=== PATIENT | female | born 2000 | race Caucasian/White ===

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

== ENCOUNTER 2020-04-15 16:27 | Emergency (ER) | payer SELFPAY ==
[~2020-04-15] VITALS: Ht 154.9 cm; Wt 81.7 kg
[2020-04-15 17:44] LABS: ANION GAP 4 mmol/L (5-15); CALCIUM 9.1 mg/dL (8.5-10.1); CHLORIDE 108 mmol/L (98-107)
[2020-04-15 17:54] LABS: BASOPHILS % (AUTO) 1 % (0-1); EOSINOPHILS % (AUTO) 1 % (1-7); LYMPHOCYTES % (AUTO) 23 % (22-44); MEAN CORPUSCULAR HEMOGLOBIN 31.1 pg (27.0-34.8); MEAN CORPUSCULAR HGB CONC 33.4 g/dL (32.4-35.8); MEAN PLATELET VOLUME 8.4 fL (7.4-10.4); MONOCYTES % (AUTO) 8 % (2-9); NEUTROPHILS % (AUTO) 68 % (42-75); PLATELET COUNT 297 x10^3/uL (130-400); RED BLOOD COUNT 4.56 x10^6/uL (3.82-5.3); RED CELL DISTRIBUTION WIDTH 13.7 % (9.6-15.2)
[2020-04-15 17:57] LABS: MD NO
--- NOTE | 2020-04-15 20:24 | NUR ---
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
--- NOTE | 2020-04-15 20:42 | NUR ---
PT AMBULATED TO AND FROM RESTROOM WITH A SMOOTH AND STEADY GAIT, UA COLLECTED AND SENT TO LAB, PT NAD, SITTING UP IN [facility], PROVIDED WARM BLANKETS FOR COMFORT, BF AT BS, PT PLACED ON SPO2/BP MONITORING AT THIS TIME. WCTM. PT CAME INTO ED TONIGHT ABOUT ABDOMINAL PAIN THAT BEGAN LAST NIGHT DID NOT GO AWAY. STATES IT CAME ON AFTER SEX, PT STATES "IT FEELS ELIEZER LIKE MY LAST UTI". PT STATES PAIN IS IN LOWER BILATERAL ABDOMEN, DENIES FLANK OR BACK PAIN AT THIS TIME. WAITING FOR TEST RESULTS.
[2020-04-15 20:48] LABS: MICROSCOPIC NOT IND
[2020-04-15] MEDS ORDERED: SODIUM CHLORIDE FLUSH 10ML SYR IVF ONE (21:30)
--- NOTE | 2020-04-15 21:44 | NUR ---
PT NAD, RESTING ON GURNEY, NO CHANGE IN CONDITION, DENIES ADDITIONAL QUESTIONS OR NEEDS AT THIS TIME. WCTM. WAITING FOR CT
[2020-04-15] MEDS ORDERED: OMNIPAQUE 350 MG/ML, 100ML BOTTLE ONE (22:23)
--- NOTE | 2020-04-15 22:31 | NUR ---
PT TO/FROM CT VIA GURMEET, NAD, NO CHANGE IN CONDITION, WCTM. WAITING FOR READ
[2020-04-15 23:06] VITALS: BP 107/60
== END 2020-04-15 23:08 | disposition home or self-care (01) ==
LOC: ED 21:35
DX: N83.291 Other ovarian cyst, right side (principal); R10.33 Periumbilical pain
CPT/HCPCS: 36415; 74177; 80048; 81003; 82040; 84703; 85025; 99285; Q9967